=== PATIENT | female | born 1995 ===

== ENCOUNTER 2021-09-22 10:04 | Outpatient (CLI) | payer OTHER | END 2021-09-22 11:15 | disposition home or self-care (01) | LOC: PRENATAL 10:04 | PROVIDERS: ATTEND Obstetrics & Gynecology Maternal & Fetal Medicine | DX: O36.80X0 Pregnancy with inconclusive fetal viability, not applicable or unspecified (principal); Z3A.01 Less than 8 weeks gestation of pregnancy; O26.851 Spotting complicating pregnancy, first trimester; O30.90 Multiple gestation, unspecified, unspecified trimester ==

== ENCOUNTER 2022-05-05 06:33 | Inpatient (IN) | payer OTHER ==
[~2022-05-05] VITALS: Ht 154.9 cm; Wt 70.3 kg
[2022-05-05] MEDS ORDERED: PRENATAL + DHA1 EAC1 PO (09:03)
[2022-05-05] MEDS ORDERED: VALACYCLOVIR500 MG (13:46)
== END 2022-05-07 14:04 | disposition home or self-care (01) | DRG 807 ==
LOC: LDR 06:33 → OB/GYN 06:33
PROVIDERS: ADMIT Obstetrics & Gynecology; ATTEND Obstetrics & Gynecology
PROC: 10E0XZZ Delivery of Products of Conception, External Approach (ICD-10-PCS; principal; 2022-05-05)
PROC: 0UQG7ZZ Repair Vagina, Via Natural or Artificial Opening (ICD-10-PCS; 2022-05-05)
PROC: 4A1HXCZ Monitoring of Products of Conception, Cardiac Rate, External Approach (ICD-10-PCS; 2022-05-05)
DX: O71.4 Obstetric high vaginal laceration alone (principal); Z37.0 Single live birth; Z3A.39 39 weeks gestation of pregnancy; Z20.822 Contact with and (suspected) exposure to COVID-19